=== PATIENT | female | born 1960 | race Asian ===

== ENCOUNTER 2020-01-15 09:28 | Emergency (ER) | payer BC ==
--- NOTE | 2020-01-15 09:32 | UC ---
Throat Pain/Nasal Pramod HPI - HPI Summary HPI Summary: 59 yo female presents with URI symptoms. She tells me that for the last week she has had a sore throat, dry cough, and sinus pain/pressure/congestion. She has been taking aspirin OTC with no relief. She felt feverish one day, but temp was 99.4F. She took her BG this morning and was 106. She is eating, drinking, and tolerating po well. Denies fever, chills, SOB, chest pain, abdominal pain, n /v. Of note, her BP is elevated today. She has a dx of HTN and states she takes her medications at bedtime -- she did take them last night. She is not currently having any headaches, vision changes, dizziness, weakness, numbness, tingling, SOB, chest pain, n/v. - History of Current Complaint Stated Complaint: THROAT PAIN Time Seen by Provider: 01/15/20 09:32 Hx Obtained From: Patient Onset/Duration: Gradual Onset Severity: Moderate Pain Intensity: 5 Pain Scale Used: 0-10 Numeric - Allergies/Home Medications Allergies/Adverse Reactions: Allergies Allergy/AdvReac Type Severity Reaction Status Date / Time Penicillins Allergy Rash Verified 01/15/20 09:31 prednisone Allergy Rash Verified 01/15/20 09:32 Home Medications: Home Medications Azithromycin TAB* [Zithromax TAB (Z-PAULA) 250 mg #6 tabs] 2 tab PO .TODAY, THEN 1 DAILY #1 paula 01/15/20 [Rx] Losartan TAB* [Cozaar TAB*] 50 mg PO DAILY 01/15/20 [History Confirmed 01/15/20] Simvastatin 40 mg PO DAILY 01/15/20 [History Confirmed 01/15/20] metFORMIN* [Glucophage 500 MG TAB *] 500 mg PO BID 01/15/20 [History Confirmed 01/15/20] PMH/Surg Hx/FS Hx/Imm Hx Endocrine History: Diabetes, Dyslipidemia Cardiovascular History: Hypertension - Surgical History Surgical History: None - Family History Known Family History: Positive: Hypertension, Diabetes - Social History Lives: With Family Alcohol Use: Occasionally Substance Use Type: None Smoking Status (MU): Never Smoked Tobacco Review of Systems All Other Systems Reviewed And Are Negative: No Constitutional: Positive: Negative Skin: Positive: Negative Eyes: Positive: Negative ENT: Positive: Sore Throat, Nasal Discharge, Sinus Congestion, Sinus Pain/ Tenderness Respiratory: Positive: Cough Cardiovascular: Positive: Negative Gastrointestinal: Positive: Negative Neurological/Mental Status: Positive: Negative Psychological: Positive: Negative Physical Exam - Summary Physical Exam Summary: GENERAL: NAD. WDWN. No pain distress. SKIN: No rashes, sores, lesions, or open wounds. HEENT: Head: AT/NC Eyes: EOM intact. Conjunctiva clear without inflammation or discharge. Ears: Hearing grossly normal. TMs intact, no bulging, erythema, or edema. Nose: Nasal mucosa mildly swollen and erythematous with yellow/ clear discharge. TTP maxillary and frontal sinus. Positive post nasal drip Throat: Posterior oropharynx with mild erythema. No exudates or tonsillar enlargement. Uvula midline. NECK: Supple. Nontender. No lymphadenopathy. CHEST: CTAB. No r/r/w. No accessory muscle use. Breathing comfortably and in no distress. CV: RRR. Pulses intact. NEURO: Alert. PSYCH: Age appropriate behavior. Triage Information Reviewed: Yes Vital Signs: Vital Signs: Temp Pulse Resp BP Pulse Ox 97.3 F 87 16 192/116 98 01/15/20 09:34 01/15/20 09:34 01/15/20 09:34 01/15/20 09:34 01/15/20 09:34 Vital Signs: Temp Pulse Resp BP Pulse Ox 97.3 F 87 16 210/116 98 01/15/20 09:34 01/15/20 09:34 01/15/20 09:34 01/15/20 09:52 01/15/20 09:34 Vital Signs Reviewed: Yes Throat Pain/Nasal Course/Dx - Course Course Of Treatment: Suspect URI, but given DM and length of symptoms with no improvement - will start anbx at this time. BP recheck was 210/116. -- although she seems asymptomatic today, I discussed this with her and recommended she go to the ER now for further evaluation/treatment of her high BP. I made her aware of possible worsening condition, CVA, ACS, permanent disability, and/or resulting from HTN complications. She voiced understanding and states she will think about it, but prefers to call her PCP tomorrow. - Differential Dx/Diagnosis Provider Diagnosis: URI (upper respiratory infection), HTN (hypertension) Discharge ED - Sign-Out/Discharge Documenting (check all that apply): Patient Departure All imaging exams completed and their final reports reviewed: No Studies - Discharge Plan Condition: Stable Disposition: HOME-RECOMMEND TO ED Prescriptions: Azithromycin TAB* [Zithromax TAB (Z-PAULA) 250 mg #6 tabs] 2 tab PO .TODAY, THEN 1 DAILY #1 paula Patient Education Materials: Upper Respiratory Infection (ED) Referrals: Deepa Gonzalez MD [Primary Care Provider] - Additional Instructions: Your blood pressure was very high at today's visit - although you are not having at symptoms at this time, I recommend that you go to the ER for further treatment of this. - Billing Disposition and Condition Condition: STABLE Disposition: Home-Recommend to ED
[2020-01-15 09:52] VITALS: BP 210/116
== END 2020-01-15 10:03 | disposition home health service (06) ==
LOC: UCEAST 09:28
DX: J06.9 Acute upper respiratory infection, unspecified (principal); I10 Essential (primary) hypertension; E78.5 Hyperlipidemia, unspecified; E11.9 Type 2 diabetes mellitus without complications; Z79.899 Other long term (current) drug therapy; Z79.84 Long term (current) use of oral hypoglycemic drugs; Z88.1 Allergy status to other antibiotic agents; Z88.8 Allergy status to other drugs, medicaments and biological substances
CPT/HCPCS: 99212; G0463